=== PATIENT | female | born 1995 | race Caucasian/White ===

== ENCOUNTER 2018-04-08 09:20 | Inpatient (IN) | payer OTHER ==
[2018-04-08 10:10] LABS: ABS Basophils 0 10^3/ul (0-0.2); ABS Eosinophils 0 10^3/ul (0-0.6); ABS Lymphocytes 1.4 10^3/ul (1.0-4.8); ABS Monocytes 1.1 10^3/ul (0-0.8); ABS Neutrophils 15.5 10^3/ul (1.5-7.7); ABS Nucleated RBC 0 10^3/ul; Eosinophil % 0.1 %; Hematocrit 38 % (35-47); Hemoglobin 12.6 g/dl (12.0-16.0); Lymphocyte % 7.5 %; Mean Corpuscular HGB Conc 33 g/dl (31-36); Mean Corpuscular Hemoglobin 30 pg (27-31); Mean Corpuscular Volume 92 fL (80-97); Nucleated Red Blood Cells % 0; Platelet Count 316 10^3/ul (150-450); Red Blood Count 4.16 10^6/ul (4.00-5.40); Red Cell Distribution Width 15 % (10.5-15)
--- NOTE | 2018-04-08 11:09 | HP ---
General Information - Reason for Visit active labor - General Information Maternal Age: 22 Grav: 1 Para: 0 SAB: 0 IEA: 0 Estimated Due Date: 04/04/18 Determined By: LMP Maternal Blood Type and Rh: O Positive - Results this Serology/RPR Result: Non-Reactive Rubella Result: Immune HBsAg Result: Negative HIV Result: Negative GBS Culture Result: Negative Past Medical History Pertinent Past Surgical History: None Pertinent Family History: See Records - M:HTN; lung CA, osteoporosis, CVD - Antepartal Records Antepartal Records: Reviewed, Complicated by: - abnormal MSAFP (NIPT: WNL) Review of Systems Constitutional: Uncomfortable CV Complaint: No Respiratory: Shortness of Breath: No Gastrointestinal: No Nausea/Vomiting, Normal Bowel Movement Genitourinary: No Dysuria, No Bleeding, No Leaking Fluid Musculoskeletal: Contractions Neurological: No Headache, No Visual Changes Movement: Normal Exam Allergies/Adverse Reactions: Allergies No Known Allergies Allergy (Verified 04/07/18 14:56) Vital Signs 04/08/18 09:25 Temperature 98.7 F Pulse Rate 84 Respiratory 20 Rate Blood Pressure 133/70 (mmHg) Lab Values - Entire Visit: Laboratory Tests 04/08/18 04/08/18 09:50 09:50 WBC 18.0 H RBC 4.16 Hgb 12.6 Hct 38 MCV 92 MCH 30 MCHC 33 RDW 15 Plt Count 316 MPV 9.0 Neut % (Auto) 86.0 Lymph % (Auto) 7.5 [place] % (Auto) 6.2 Eos % (Auto) 0.1 Baso % (Auto) 0.2 Absolute Neuts (auto) 15.5 H Absolute Lymphs (auto) 1.4 Absolute Monos (auto) 1.1 H Absolute Eos (auto) 0 Absolute Basos (auto) 0 Absolute Nucleated RBC 0 Nucleated RBC % 0 Blood Type O Positive Antibody Screen Negative - Measurements Height: 5 ft 2 in Weight: 158 lb Weight in lbs: 158.204764 Body Mass Index (BMI): 28.9 Pre- Weight: 128 lb Weight Gained This : 30 lbs and 0 ozs - Exam Breast: Breast Exam Deferred CVA: No CVA Tenderness Extremities: No Edema Heart: Normal Rhythm/Heart Sounds HEENT: No Significant Findings Lungs: Clear Bilaterally Rectal: Rectal Exam Deferred Reflexes: DTR 2+ Thyroid: No Thyromegaly - Abdominal Exam Abdomen Exam: Non-Tender, Fundal Height Consistent with Dates - Ultrasound/Biophysical Profile Ultrasound Status: Not Done Targeted Exam Findings Estimated Weight: [id number] Cervical Exam: 3cm - nurse exam Effacement: Thin Presenting Part: Vertex Membrane Status: Intact EFM Findings - External Monitor Findings Baseline Heart Rate: 140 External Monitor Findings: Accelerations Present, No Pattern of Variable or Late Decelerations, Variability Moderate, Baseline Stable Contractions: Regular, Moderate, 45-90 Seconds Contraction Frequency: 5 Assessment/Plan - Assessment 22 y.o. , active labor [id number] - Plan Plan: Admit - Anticipate Vaginal Delivery - Date/Time of Admission Date of Admission: 04/08/18 Time of Admission: 09:30
[2018-04-08] MEDS ORDERED: Nalbuphine* 10 MG/ML 1 ML VIAL IV PRN (11:38)
[2018-04-08] MEDS ORDERED: Promethazine INJ(RESTRICTED)* 25 MG/ML 1 ML VIAL IV PRN (11:38)
[2018-04-08] MEDS ORDERED: OBEPIDURAL* 250 ML EPIDURAL ONE (14:05)
[2018-04-08] MEDS ORDERED: Phenylephrine INJ* 10 MG/ML 1 ML VIAL (10 MG) ONE (14:19)
--- NOTE | 2018-04-08 14:22 | PN ---
Progress Note - Progress Note Date of Service: 04/08/18 Note: Pt requests epidural for pain mgmt. FHT: baseline 145, +accels, -decels, moderate variability, ctx q 4-6min.
[2018-04-08] MEDS ORDERED: Sodium Citrate/Citric Acid* 15 ML UDC PO PRN (14:36)
[2018-04-08] MEDS ORDERED: EPHEDrine (Pressors)* 50 MG/ML VIAL IV PUSH PRN (14:36)
[2018-04-08] MEDS ORDERED: Famotidine TAB* 20 MG PO PRN (14:36)
[2018-04-08] MEDS ORDERED: Phenylephrine IV* 40 MCG/ML 10 ML SYRINGE IV PUSH PRN (14:36)
[2018-04-08] MEDS ORDERED: OBEPIDURAL* 250 ML EPIDURAL SCH (15:00)
--- NOTE | 2018-04-08 17:06 | PN ---
Progress Note - Progress Note Date of Service: 04/08/18 SOAP: Subjective: [Pt comfortable with epidural. Pt reports increased pressure that comes and goes. Pt also report she had a gush of fluid this AM around 5AM.] Objective: [1330/109, P:95 bpm, FHT: 155, +accels, occasional early decels, moderate variability. cervix: 8/90/-1] Assessment: [22 y.o. , 40w 4d, Cat 1 NST] Plan: [1) Position changes for descent 2) Anticipate ]
[2018-04-08] MEDS ORDERED: Acetaminophen TAB* 325 MG PO PRN ×2 (17:36→23:24)
[2018-04-08] MEDS ORDERED: Acetaminophen TAB* 325 MG ONE (17:41)
[2018-04-08] MEDS ORDERED: Lidocaine 2% VISCOUS* 15 ML UDC ONE (20:11)
[2018-04-08] MEDS ORDERED: Oxytocin in LR* 20 UNITS/1,000 ML BAG IVPB ONE (20:43)
[2018-04-08] MEDS ORDERED: Misoprostol TAB* 200 MCG ONE (20:59)
--- NOTE | 2018-04-08 21:11 | PROCNOTE ---
[facility] OB: Delivery Note - Delivery A Date of : 04/08/18 Time of : 20:39 Sex: Female Score 1 Minute: 5 Score 5 Minutes: 8 Gestational Age in Weeks and Days at Delivery: 40 Weeks and 4 Days Delivery Method: Spontaneous Vaginal Labor: Spontaneous Amniotic Fluid: Meconium Estimated Blood Loss: 400 Anesthesia/Analgesia: IM/IV, CEI for Labor Delivered By: Ariana Barriga - Nursery Level of Nursery: Regular/Bedside - Perineum Perineal Injury: Midline Episiotomy Perineal Repair: By Delivering Practioner - Events Delivery Events of Note: Supplemental O2 to Mother, Post- Bleeding - Meds Given Delivery Events of Note Comment: L nuchal arm
[2018-04-08] MEDS ORDERED: Witch Hazel PAD* JAR ONE (23:13)
[2018-04-08] MEDS ORDERED: Dibucaine 1% 28.35 GM TUBE ONE (23:13)
[2018-04-08] MEDS ORDERED: Ibuprofen TAB* 600 MG ONE (23:13)
[2018-04-08] MEDS ORDERED: Glycerin ADULT SUPP PR PRN (23:24)
[2018-04-08] MEDS ORDERED: Witch Hazel PAD* JAR TOPICAL PRN (23:24)
[2018-04-08] MEDS ORDERED: Misoprostol TAB* 200 MCG PR ONE (23:24)
[2018-04-08] MEDS ORDERED: Oxytocin in LR* 20 UNITS/1,000 ML BAG IVPB SCH (23:45)
[2018-04-09 07:29] LABS: Hematocrit 31 % (35-47); Hemoglobin 10.3 g/dl (12.0-16.0); Mean Corpuscular HGB Conc 33 g/dl (31-36); Mean Corpuscular Hemoglobin 31 pg (27-31); Mean Corpuscular Volume 92 fL (80-97); Mean Platelet Volume 8.5 fL (7.4-10.4); Platelet Count 236 10^3/ul (150-450); Red Blood Count 3.36 10^6/ul (4.00-5.40); Red Cell Distribution Width 15 % (10.5-15); White Blood Count 35.2 10^3/ul (3.5-10.8)
[2018-04-09 08:15] LABS: ABS Basophils 0 10^3/ul (0-0.2); ABS Eosinophils 0 10^3/ul (0-0.6); ABS Lymphocytes 2.4 10^3/ul (1.0-4.8); ABS Monocytes 3.2 10^3/ul (0-0.8); ABS Neutrophils 29.6 10^3/ul (1.5-7.7); ABS Nucleated RBC 0 10^3/ul; Eosinophil % 0.1 %; Nucleated Red Blood Cells % 0
[2018-04-09] MEDS ORDERED: Simethicone TAB* 80 MG TAB.CHEW PO SCH (08:30)
[2018-04-09] MEDS: Docusate CAP* 100 MG PO SCH ×3 (08:37→20:30)
[2018-04-09] MEDS ORDERED: Ferrous Gluconate TAB* 324 MG TAB PO SCH (09:00)
[2018-04-09] MEDS: Ibuprofen TAB* 600 MG PO PRN (14:58)
[2018-04-09] MEDS: Dibucaine 1% 28.35 GM TUBE PR PRN (20:30)
[2018-04-10] MEDS: Ibuprofen TAB* 600 MG PO PRN ×2 (03:23→09:14)
[2018-04-10 05:45] LABS: ABS Basophils 0.1 10^3/ul (0-0.2); ABS Eosinophils 0.3 10^3/ul (0-0.6); ABS Lymphocytes 3.4 10^3/ul (1.0-4.8); ABS Monocytes 1.5 10^3/ul (0-0.8); ABS Neutrophils 18.7 10^3/ul (1.5-7.7); ABS Nucleated RBC 0 10^3/ul; Eosinophil % 1.4 %; Hematocrit 30 % (35-47); Hemoglobin 10.4 g/dl (12.0-16.0); Lymphocyte % 14.2 %; Mean Corpuscular HGB Conc 35 g/dl (31-36); Mean Corpuscular Hemoglobin 32 pg (27-31); Mean Corpuscular Volume 92 fL (80-97); Mean Platelet Volume 8.3 fL (7.4-10.4); Nucleated Red Blood Cells % 0; Platelet Count 255 10^3/ul (150-450); Red Blood Count 3.26 10^6/ul (4.00-5.40); Red Cell Distribution Width 16 % (10.5-15); White Blood Count 24.1 10^3/ul (3.5-10.8)
[2018-04-10] MEDS: Docusate CAP* 100 MG PO SCH (09:14)
[2018-04-10 09:36] VITALS: BP 128/81
[2018-04-10] MEDS: Dibucaine 1% 28.35 GM TUBE PR PRN (10:14)
== END 2018-04-10 11:18 | disposition home or self-care (01) | DRG 560 ==
LOC: MCHOBOUT 09:20 → MCHOB 09:36
PROVIDERS: ADMIT Midwife; ATTEND Midwife
PROC: 10E0XZZ Delivery of Products of Conception, External Approach (ICD-10-PCS; principal; 2018-04-08)
PROC: 4A1HXCZ Monitoring of Products of Conception, Cardiac Rate, External Approach (ICD-10-PCS; 2018-04-08)
PROC: 10907ZC Drainage of Amniotic Fluid, Therapeutic from Products of Conception, Via Natural or Artificial Opening (ICD-10-PCS; 2018-04-08)
PROC: 0W8NXZZ Division of Female Perineum, External Approach (ICD-10-PCS; 2018-04-08)
DX: O48.0 Post-term pregnancy (principal); O72.1 Other immediate postpartum hemorrhage; Z37.0 Single live birth; O90.81 Anemia of the puerperium; O77.0 Labor and delivery complicated by meconium in amniotic fluid; O32.2XX0 Maternal care for transverse and oblique lie, not applicable or unspecified; O76 Abnormality in fetal heart rate and rhythm complicating labor and delivery; Z3A.40 40 weeks gestation of pregnancy
CPT/HCPCS: 36415; 85025; 86850; 86900; 86901; A9270-GY; J2300; J2550